=== PATIENT | male | born 1970 | race Caucasian/White ===

== ENCOUNTER → 2017-02-06 | Outpatient (CLI) | payer OTHER ==
--- NOTE | 2017-02-06 10:29 | REP ---
RIGHT FOOT SERIES: Two views. HISTORY: Gout. FINDINGS: AP and lateral views of the right foot demonstrate mild to moderate hallux valgus. There is osteoarthritis at the 1st MTP joint. Some mild diffuse forefoot swelling is seen. No bony erosive changes seen. No soft tissue calcification is noted. IMPRESSION: Hallux valgus and 1st MTP joint osteoarthritis. No erosive change seen. Signed by Shravan Hancock MD 02/06/2017 11:07 A
--- NOTE | 2017-02-06 10:30 | REP ---
BILATERAL KNEE SERIES: 10 views. HISTORY: Pain in both knees. FINDINGS: Five views of each knee are presented. There is mild articular spurring of the patella on lateral radiographs bilaterally consistent with mild patellofemoral osteoarthritis. There is also nonarticular spurring at the quadriceps tendon insertion on the superior pole of the patella on the right. There is mild osteoarthritic spurring in the medial and to a lesser extent lateral compartment of the left knee. Mild medial compartment spurring is noted on the right. Mild chondrocalcinosis is noted on the right. IMPRESSION: Bilateral osteoarthritic changes right a little more prominently than left. Signed by Shravan Hancock MD 02/06/2017 11:10 A
== END ==
LOC: M LRY 09:27
PROVIDERS: ATTEND Family Medicine
DX: M1A.0710 Idiopathic chronic gout, right ankle and foot, without tophus (tophi) (principal); M25.561 Pain in right knee; M25.562 Pain in left knee; M19.071 Primary osteoarthritis, right ankle and foot; M17.0 Bilateral primary osteoarthritis of knee

== ENCOUNTER → 2017-02-06 | Outpatient (REF) | payer OTHER ==
[2017-02-06 12:11] LABS: MEAN CORPUSCULAR HEMOGLOBIN 30.3 pg (27.0-33.0); MEAN CORPUSCULAR HGB CONC 34.2 g/dl (32.0-36.5); MEAN CORPUSCULAR VOLUME 88.5 fl (80.0-96.0); RED CELL DISTRIBUTION WIDTH 11.9 % (11.5-14.5); WHITE BLOOD COUNT 9.2 K/mm3 (4.0-10.0)
[2017-02-06 12:31] LABS: ALBUMIN 3.4 GM/DL (3.2-5.2); ALBUMIN/GLOBULIN RATIO 0.89 (1.00-1.93); ALKALINE PHOSPHATASE 120 U/L (45-117); ALT/SGPT 46 U/L (12-78); ANION GAP 7 MEQ/L (8-16); AST/SGOT 24 U/L (15-37); BILIRUBIN,TOTAL 0.4 MG/DL (0.2-1.0); BLOOD UREA NITROGEN 11 MG/DL (7-18); CALCIUM LEVEL 9.2 MG/DL (8.5-10.1); CARBON DIOXIDE LEVEL 32 MEQ/L (21-32); CHLORIDE LEVEL 101 MEQ/L (98-107); CHOLESTEROL LEVEL 168 MG/DL (<200); GLOMERULAR FILTRATION RATE > 60.0 (>60); GLUCOSE, FASTING 94 MG/DL (70-105); POTASSIUM SERUM 4.4 MEQ/L (3.5-5.1); SODIUM LEVEL 140 MEQ/L (136-145); TOTAL PROTEIN 7.2 GM/DL (6.4-8.2); TRIGLYCERIDES LEVEL 187 MG/DL (<150); URIC ACID 6.4 MG/DL (3.5-7.2)
[2017-02-06 13:02] LABS: BANDS 1 % (< 11); BASOPHILS 1 % (0-4); EOSINOPHILS 4 % (0-5)
== END ==
LOC: M SFHCLERA 09:13
PROVIDERS: ATTEND Family Medicine
DX: I48.91 Unspecified atrial fibrillation (principal); Z79.01 Long term (current) use of anticoagulants; I10 Essential (primary) hypertension; E78.5 Hyperlipidemia, unspecified; E66.01 Morbid (severe) obesity due to excess calories; M1A.0710 Idiopathic chronic gout, right ankle and foot, without tophus (tophi)

== ENCOUNTER → 2017-04-10 | Outpatient (CLI) | payer OTHER ==
[2017-04-10 11:23] LABS: MEAN CORPUSCULAR HEMOGLOBIN 28.1 pg (27.0-33.0); MEAN CORPUSCULAR HGB CONC 32.9 g/dl (32.0-36.5); MEAN CORPUSCULAR VOLUME 85.4 fl (80.0-96.0); PLATELET COUNT, AUTOMATED 262 10^3/uL (150-450); RED CELL DISTRIBUTION WIDTH 12.5 % (11.5-14.5); WHITE BLOOD COUNT 9.3 10^3/uL (4.0-10.0)
[2017-04-10 11:41] LABS: ANION GAP 3 MEQ/L (8-16); BLOOD UREA NITROGEN 14 MG/DL (7-18); CALCIUM LEVEL 9.2 MG/DL (8.5-10.1); CARBON DIOXIDE LEVEL 35 MEQ/L (21-32); CHLORIDE LEVEL 100 MEQ/L (98-107); CREATININE FOR GFR 0.77 MG/DL (0.70-1.30); GLOMERULAR FILTRATION RATE > 60.0 (>60); GLUCOSE, FASTING 102 MG/DL (70-105); POTASSIUM SERUM 4.5 MEQ/L (3.5-5.1); SODIUM LEVEL 138 MEQ/L (136-145)
== END ==
LOC: M LAB 10:17
PROVIDERS: ATTEND Internal Medicine Cardiovascular Disease
DX: I47.2 Ventricular tachycardia (principal)

== ENCOUNTER → 2017-07-02 | Outpatient (CLI) | payer OTHER | LOC: M SLEEP 19:48 | DX: G47.33 Obstructive sleep apnea (adult) (pediatric) (principal) ==

== ENCOUNTER → 2017-07-23 | Outpatient (CLI) | payer OTHER | LOC: M SLEEP 19:41 | DX: G47.33 Obstructive sleep apnea (adult) (pediatric) (principal) | CPT/HCPCS: 95811 ==

== ENCOUNTER 2020-03-20 20:55 | Emergency (ER) | payer OTHER ==
[~2020-03-20] VITALS: Ht 180.3 cm; Wt 160.8 kg
[2020-03-20 20:55] VITALS: BP 126/67
[2020-03-20] MEDS ORDERED: LOSA100T50 PO (21:05)
[2020-03-20] MEDS ORDERED: CART240C3 PO (21:05)
[2020-03-20] MEDS ORDERED: LIDOCAINE 1% MDV 20ML VIAL SC ONE (22:00)
[2020-03-20] MEDS ORDERED: BOOSTRIX/ADACEL VACCINE (DIPHTH/PERTUSS/ACELL/TETANUS) 0.5ML SYR IM ONE (22:00)
[2020-03-20] MEDS ORDERED: KEFL500C17 PO (22:35)
[2020-03-20] MEDS ORDERED: CEPHALEXIN 500 MG CAP PO ONE (22:45)
[2020-03-20] MEDS ORDERED: BACITRACIN OINTMENT 30GM TUBE TOP ONE (22:45)
== END 2020-03-20 23:55 | disposition home or self-care (01) ==
LOC: M ED 20:55
DX: S96.121A Laceration of muscle and tendon of long extensor muscle of toe at ankle and foot level, right foot, initial encounter (principal); S91.311A Laceration without foreign body, right foot, initial encounter; W26.8XXA Contact with other sharp object(s), not elsewhere classified, initial encounter; Y92.099 Unspecified place in other non-institutional residence as the place of occurrence of the external cause; Y93.9 Activity, unspecified; Y99.9 Unspecified external cause status; I10 Essential (primary) hypertension; Z79.899 Other long term (current) drug therapy

== ENCOUNTER → 2021-05-30 | Outpatient (CLI) | payer OTHER ==
[~2021-05-30] MED LIST: CART240C3 PO; KEFL500C17 PO; LOSA100T45 PO
[2021-05-30 13:07] LABS: BLOOD UREA NITROGEN 19 MG/DL (7-18); CALCIUM LEVEL 9.3 MG/DL (8.5-10.1); CARBON DIOXIDE LEVEL 32 MEQ/L (21-32); CHLORIDE LEVEL 101 MEQ/L (98-107); CREATININE FOR GFR 0.91 MG/DL (0.70-1.30); GLOMERULAR FILTRATION RATE > 60.0 (>56); GLUCOSE, FASTING 107 MG/DL (70-100); POTASSIUM SERUM 4.4 MEQ/L (3.5-5.1); SODIUM LEVEL 136 MEQ/L (136-145)
== END ==
LOC: M WUC 10:50
PROVIDERS: ATTEND Internal Medicine Cardiovascular Disease
DX: I50.32 Chronic diastolic (congestive) heart failure (principal); I48.0 Paroxysmal atrial fibrillation

== ENCOUNTER → 2025-01-18 | Outpatient (REF) ==
[~2025-01-18] MED LIST changes: -LOSA100T45 PO; +LOSA100T46 PO
== END ==
LOC: M LAB REF 21:22
DX: Z01.89 Encounter for other specified special examinations (principal)